=== PATIENT | female | born 1980 | race African-American/Black ===

== ENCOUNTER → 2020-06-18 | Outpatient (CLI) | payer MEDICAID ==
--- NOTE | 2020-06-18 14:35 | RAD ---
EXAM: ABDOMINAL ULTRASOUND. HISTORY: Right-sided abdominal pain. History of renal stones. COMPARISON: Noncontrast abdomen pelvis CT 04/30/2015, pelvis ultrasound 06/18/2020. FINDINGS: Sonographic evaluation of the abdomen was performed. The liver appears normal in parenchymal echotexture. There are no focal lesions. The spleen measures 10.2 cm. The gallbladder is unremarkable without evidence of stones, wall thickening or pericholecystic fluid. There is no sonographic Ivey sign. The common duct measures 4 mm. The visualized portions of the head of the pancreas reveal no abnormality. The right kidney measures 11.3 x 5.1 x 4.3 cm. Cortical thickness and echogenicity are preserved. There is moderate right hydronephrosis with proximal ureteral dilation. The left kidney measures 9.7 x 5.8 x 5.1 cm. Cortical thickness and echogenicity are preserved. There is no hydronephrosis. However, a cortical cyst is identified in the midpole measuring 1.7 x 1.8 x 1.7 cm. There is some low level echoes in the cyst. The visualized portions of the abdominal aorta and inferior vena cava are grossly patent and normal in caliber. IMPRESSION: 1. Right hydronephrosis, grade 2-3 and left renal cortical cyst 1.7 cm in diameter that contains internal debris. 2. Otherwise unremarkable complete abdominal ultrasound. EXAM: Pelvic ultrasound HISTORY: Right lower quadrant abdominal pain and heavy menses. COMPARISON: Abdomen ultrasound of the same day and abdomen and pelvis CT without IV contrast of 04/30/2015. FINDINGS: Transabdominal ultrasound of the pelvis using grayscale, color and spectral Doppler imaging was performed. This reveals an enlarged uterus measuring 12.4 x 10.4 x 10.3 cm. It contains an intramural uterine leiomyoma measuring 7.0 x 6.0 x 7.6 cm that is located centrally as well as a superolateral likely subserosal additional leiomyoma measuring 5.1 x 6.4 x 7.0 cm. The right ovary is normal measuring 3.2 x 2.8 x 3.2 cm. The left ovary is not well seen. No adnexal mass or pelvic free fluid. 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 These can be further characterized with pelvic MRI with and without IV contrast if clinically warranted. Electronically signed by: Gerald Lieberman MD (06/18/2020 2:32 PM) [id number]
== END ==
LOC: US 07:54
PROVIDERS: ATTEND Physician Assistant
DX: N28.1 Cyst of kidney, acquired (principal); N13.30 Unspecified hydronephrosis; N93.8 Other specified abnormal uterine and vaginal bleeding; D25.9 Leiomyoma of uterus, unspecified
CPT/HCPCS: 76700; 76856

== ENCOUNTER → 2020-07-06 | Outpatient (CLI) | payer MEDICAID ==
[~2020-07-06] MED LIST: IOHEXOL 300 MG/ML 75 ML VIAL. IV ONE
--- NOTE | 2020-07-06 09:34 | RAD ---
CT scan of the abdomen and pelvis without and with contrast 07/06/2020 CLINICAL HISTORY: Hydronephrosis. Low pelvic pain. TECHNIQUE: Unenhanced, contiguous, 3 mm axial sections were obtained through the abdomen and pelvis. After the intravenous administration of 75 cc of Omnipaque 300, contiguous, 5 mm axial sections were obtained through the abdomen and pelvis. One or more of the following individualized dose reduction techniques were utilized for this study: 1. Automated exposure control. 2. Adjustment of the mA and/or kV according to patient size. 3. Use of iterative reconstruction technique. FINDINGS: Comparison is made to a CT scan of the abdomen and pelvis dated 04/30/2015. Additional comparison is made to ultrasounds of the abdomen and pelvis dated 06/18/2020. Images through the lung bases are within normal limits. The unenhanced CT images demonstrate a 1 mm nonobstructing calculus involving the midpole of the right kidney. Three nonobstructing calculi are seen involving the midpole of the left kidney. These measure 5 to 7 mm in size. No ureteral calculus is seen. On the postcontrast images the liver, spleen, pancreas, and adrenal glands are within normal limits. A 2 cm dilated calyx is seen involving the superior/midpole of the left kidney. There is no evidence of obstruction of either collecting system. The abdominal aorta tapers normally. The gallbladder is well-distended. No free fluid or free air is seen within the abdomen. Air and stool are seen throughout the colon. The appendix is well-visualized and is within normal limits. Images through the pelvis demonstrate the urinary bladder to be contracted. The uterus is enlarged. It measures 15.9 x 13.4 x 9.1 cm in longitudinal, transverse, and AP dimensions. Rounded heterogeneous mass lesions are seen scattered throughout the uterus consistent with fibroids. These measure 2 to 9.1 cm in size. The uterus extends to the level of the umbilicus. Calcifications are seen within the pelvis consistent with phleboliths. A 2.8 cm rounded low-attenuation structure seen in the right adnexa which likely represents a right ovarian cyst. No free fluid is seen. Minimal S-shaped curvature of the thoracolumbar spine is noted. The right hydronephrosis seen on the patient's recent ultrasound appears to have resolved. The uterus has significantly increased in size since the patient's previous CT scan from 2014. The anechoic structure seen within the left kidney on the patient's recent ultrasound corresponds to the dilated calyx seen on today's CT scan. IMPRESSION: 1. Bilateral nonobstructing renal calculi. No ureteral calculus is seen. There is no evidence of obstruction of either collecting system. 2. Enlarged fibroid uterus. 3. . 2.8 cm probable right ovarian cyst. Electronically signed by: Joe Wilde MD (07/06/2020 9:31 AM) [id number]
== END ==
LOC: CT 07:57
PROVIDERS: ATTEND Physician Assistant
DX: N20.0 Calculus of kidney (principal); N83.291 Other ovarian cyst, right side; D25.9 Leiomyoma of uterus, unspecified
CPT/HCPCS: 74178; Q9967

== ENCOUNTER → 2020-07-06 | Outpatient (CLI) | payer MEDICAID ==
[2020-07-06 16:17] LABS: BASO % 0 % (0-3); EOS # 0.1 x10^3/uL (0.0-0.7); EOS % 2 % (0-3); HEMATOCRIT 33.1 % (36.0-47.0); HEMOGLOBIN 10.3 g/dL (12.0-15.5); LYMPH # 2.4 x10^3/uL (1.0-4.8); LYMPH % 34 % (24-48); MEAN CORPUSCULAR HEMOGLOBIN 20 pg (25-35); MEAN CORPUSCULAR HGB CONC 31 g/dL (31-37); MEAN CORPUSCULAR VOLUME 63 fL (79-100); MONO # 0.6 x10^3/uL (0.0-1.1); MONO % 9 % (0-9); NEUT % 56 % (31-73); PLATELET COUNT 372 x10^3/uL (140-400); RED BLOOD COUNT 5.27 x10^6/uL (3.50-5.40); RED CELL DISTRIBUTION WIDTH 18.8 % (11.5-14.5); WHITE BLOOD COUNT 7.2 x10^3/uL (4.0-11.0)
[2020-07-06 20:20] LABS: POIKILOCYTOSIS SLIGHT
[2020-07-06 20:21] LABS: ANISOCYTOSIS SLIGHT; MICROCYTOSIS MARKED; PLT ESTIMATE ADEQUATE (ADEQUATE)
== END ==
LOC: LAB 15:49
PROVIDERS: ATTEND Nurse Practitioner Women's Health
DX: D64.9 Anemia, unspecified (principal)
CPT/HCPCS: 36415; 85025